=== PATIENT | male | born 1960 | race Caucasian/White ===

== ENCOUNTER 2017-02-23 23:56 | Emergency (ER) | payer BC ==
--- NOTE | 2017-02-24 00:14 | RAD ---
CT head without contrast 02/24/2017 Clinical indication: Code stroke, confusion, slurred speech, severe headache. COMPARISON: None. TECHNIQUE: Multiple CT images of the head were obtained without contrast according to standard protocol. *One or more of the following individualized dose reduction techniques were utilized for this examination: 1. Automated exposure control. 2. Adjustment of the mA and/or kV according to patient size. 3. Use of iterative reconstruction technique. Head findings: No acute intracranial hemorrhage or extra-axial fluid collection. The ventricles and subarachnoid spaces are normal in size and configuration. There is mild periventricular white matter low-attenuation. Tanner-white matter interfaces are otherwise maintained. The basal cisterns are patent. No midline shift or mass effect. IMPRESSION: 1. No acute intracranial hemorrhage or mass effect. 2. Mild nonspecific white matter disease, commonly seen with chronic small vessel ischemic disease. Electronically signed by: Sage Davila MD (02/24/2017 12:11 AM) [facility]
[2017-02-24] MEDS ORDERED: MORPHINE SULFATE 4 MG/ML DISP.SYRIN. IV/SQ PRN (00:15)
--- NOTE | 2017-02-24 00:20 | PHYS DOC ---
General Chief Complaint: headache nausea vomiting diarrhea Stated Complaint: HEADACHE Time Seen by MD: 00:11 Source: patient Exam Limitations: no limitations Problems: History of Present Illness Initial Comments Patient is a 56-year-old male who comes to the emergency department complaining of nausea vomiting and headache. Patient states that last Thursday (5 days ago) he developed nausea and generalized abdominal discomfort. He says he wasn't eating or drinking much due to the nausea and or Thursday he had a worsening headache described as global and throbbing and began having loose stools. He was going to see his doctor on Thursday however states that his headache improved. Yesterday he was feeling nauseous again with the same headache. He says he's tried to eat and drink however tonight he began vomiting approximately 7:30 PM. He states he's vomited multiple times he also admits to having loose watery stools for the past several days. He's had body aches chills and sweats but no measured fevers. He denies travel or bad food exposure. No head trauma fever rash or neck stiffness. Timing/Duration: getting worse, changing over time Severity: severe Modifying Factors: improves with medication Associated Symptoms: headaches, nausea/vomiting Allergies: Coded Allergies: No Known Drug Allergies (Unverified , 02/24/17) Past Medical History Medical History: heart disease, hypertension Surgical History: noncontributory Social History Smoker: non-smoker Alcohol: occasionally Drugs: none Review of Systems Constitutional: denies chills, denies diaphoresis, denies fever, malaise EENTM: denies eye pain, denies blurred vision, denies ear pain, denies nose pain, denies throat pain Respiratory: denies cough, denies shortness of breath, denies wheezing Cardiovascular: denies chest pain, denies palpitations, denies syncope Gastrointestinal: see HPI Genitourinary: denies dysuria, denies frequency, denies hematuria Musculoskeletal: see HPI Psychiatric/Neurological: see HPI Physical Exam General Appearance: WD/WN, moderate distress Eyes: bilateral eye normal inspection, bilateral eye PERRL, bilateral eye EOMI Ear, Nose, Throat: hearing grossly normal, normal ENT inspection (dry mucous membranes), normal pharynx Neck: supple (left sternocleidomastoid and trapezius hypertonicity with tenderness no midline or bony tenderness no nuchal rigidity) Respiratory: normal breath sounds, no respiratory distress Cardiovascular: normal peripheral pulses, regular rate, rhythm Gastrointestinal: normal bowel sounds, non tender, soft Back: no CVA tenderness, no vertebral tenderness Extremities: non-tender, normal inspection 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 PHYSICIAN: ZORA MORRIS DO REASON: CONFUSION PROCEDURE: CT CODE STROKE HEAD WO CT head without contrast 02/24/2017 Clinical indication: Code stroke, confusion, slurred speech, severe headache. COMPARISON: None. TECHNIQUE: Multiple CT images of the head were obtained without contrast according to standard protocol. *One or more of the following individualized dose reduction techniques were utilized for this examination: 1. Automated exposure control. 2. Adjustment of the mA and/or kV according to patient size. 3. Use of iterative reconstruction technique. Head findings: No acute intracranial hemorrhage or extra-axial fluid collection. The ventricles and subarachnoid spaces are normal in size and configuration. There is mild periventricular white matter low-attenuation. Tanner-white matter interfaces are otherwise maintained. The basal cisterns are patent. No midline shift or mass effect. IMPRESSION: 1. No acute intracranial hemorrhage or mass effect. 2. Mild nonspecific white matter disease, commonly seen with chronic small vessel ischemic disease. Electronically signed by: José Miguel Davila MD (02/24/2017 12:11 AM) [facility] DICTATED AND SIGNED BY: JOSÉ MIGUEL DAVILA MD DATE: 02/24/17 0007 CC: ZORA MORRIS DO ~ NIHSS 2 (language, dysarthria 0158: Pertinent labs: Hb 17.7, plt 117, otherwise reassuring. Urine studies pending. 0205: Patient rechecked, nausea has resolved he is complaining of a very dry mouth and states that is causing his speech changes. He is no longer struggling to find words and is much more comfortable still complains of headache and still clinical appearance of dehydration. Blood pressure remains high 150 over 100s will also add clonidine 0.1 by mouth. 0325: Patient reports symptomatic improvement, he has produced urine and his blood pressure has improved to 120s systolic without clonidine treatment. I discussed prescription medications and time off work as well as other adjunctive treatments and measures. Patient feels stable for discharge, his vitals are normal and his ED workup has been unremarkable. His speech is normal now that he is hydrated. He expressed agreement and understanding with the treatment plan. Departure Time of Disposition: 03:20 Disposition: 01 HOME, SELF-CARE Diagnosis: migraine, cervical strain, hypovolemia Condition: IMPROVED Patient Instructions: Cervical Strain and Sprain with Rehab-SportsMed, Migraine Headache, Gglg-ma-Syil Additional Instructions: No driving or operating machinery while under the influence of sedative medications. Aggressive hydration with Gatorade or water. Off work through February 26. [id number] ibuprofen for baseline discomfort. Consider chiropractic treatment or massage. Prescription: [place] 5 mg quantity 20, cyclobenzaprine Take medications with food to avoid nausea and vomiting. Follow-up with your doctor in 2-3 days if not continually improving. Return to ED with new or changing symptoms. ZORA MORRIS DO Feb 24, 2017 00:20
[2017-02-24 00:33] LABS: BASO % 1 % (0-3); EOS # 0.1 x10^3/uL (0.0-0.7); EOS % 1 % (0-3); HEMATOCRIT 50.8 % (39.0-53.0); HEMOGLOBIN 17.7 g/dL (13.0-17.5); LYMPH # 0.7 x10^3/uL (1.0-4.8); LYMPH % 11 % (24-48); MEAN CORPUSCULAR HEMOGLOBIN 30 pg (25-35); MEAN CORPUSCULAR HGB CONC 35 g/dL (31-37); MEAN CORPUSCULAR VOLUME 87 fL (79-100); MONO # 0.3 x10^3/uL (0.0-1.1); MONO % 4 % (0-9); NEUT % 83 % (31-73); PLATELET COUNT 117 x10^3/uL (140-400); RED BLOOD COUNT 5.83 x10^6/uL (4.30-5.70); WHITE BLOOD COUNT 6.1 x10^3/uL (4.0-11.0)
[2017-02-24 00:39] LABS: ALBUMIN 4.3 g/dL (3.4-5.0); ALBUMIN/GLOBULIN RATIO 1.2 (1.0-1.7); CALCIUM 9.1 mg/dL (8.5-10.1); CREATININE 1.1 mg/dL (0.7-1.3); GFR 69.2; POTASSIUM 4.1 mmol/L (3.5-5.1)
--- NOTE | 2017-02-24 00:43 | EKG ---
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
[2017-02-24] MEDS ORDERED: IV NORMAL SALINE 1,000ML 500 ML IV SCH (01:00)
[2017-02-24] MEDS ORDERED: FAMOTIDINE 20 MG/2 ML VIAL IVP ONE (01:00)
[2017-02-24] MEDS ORDERED: ONDANSETRON PF 4 MG/2 ML VIAL. IV ONE (01:00)
[2017-02-24] MEDS ORDERED: IV NORMAL SALINE 1,000ML 1,000 ML IV SCH (02:03)
[2017-02-24] MEDS ORDERED: cloNIDine HCL 0.1 MG TABLET PO ONE (02:30)
[2017-02-24 03:00] VITALS: BP 126/74
[2017-02-24] MEDS ORDERED: CYCL-331 PO (03:19)
[2017-02-24] MEDS ORDERED: HYDR-971 PO (03:19)
[2017-02-24] MEDS ORDERED: ONDA4TAB10 PO (03:23)
[2017-02-24] MEDS ORDERED: HYDROcodone/APAP 10/325 1 TAB TABLET PO ONE (04:00)
[2017-02-24 04:52] LABS: BARBITURATES NEG (NEG); BENZODIAZEPINES NEG (NEG); CANNABINOIDS NEG (NEG); COCAINE NEG (NEG); METHADONE NEG (NEG); OPIATES POS (NEG); PHENCYCLIDINE NEG (NEG)
[2017-02-24 04:53] LABS: AMPHETAMINE/METHAMPHETAMINE NEG (NEG)
--- NOTE | 2017-02-24 07:09 | RAD ---
Portable chest, 02/24/2017: History: Coronary artery disease, chest pain, nausea Comparison is made to a study from 03/27/2009. The heart size and pulmonary vascularity are normal. There is mild linear atelectasis in the right base. No pulmonary consolidation is seen. There is no evidence of pleural fluid. IMPRESSION: Mild right basilar linear atelectasis.
== END 2017-02-24 03:33 | disposition home or self-care (01) ==
LOC: ER 23:56
DX: G43.909 Migraine, unspecified, not intractable, without status migrainosus (principal); E86.1 Hypovolemia; S16.1XXA Strain of muscle, fascia and tendon at neck level, initial encounter; R10.84 Generalized abdominal pain; X58.XXXA Exposure to other specified factors, initial encounter; Y93.89 Activity, other specified; Y92.89 Other specified places as the place of occurrence of the external cause; Y99.8 Other external cause status; I11.9 Hypertensive heart disease without heart failure
CPT/HCPCS: 36415; 70450; 71010; 80053; 80307; 82140; 82550; 82947; 83605; 83690; 84484; 85025; 85610; 85730; 93005; 96361; 96374; 96375; 99285; G0480; J2270; J2405; J3010; S0028; G0479; J7030